=== PATIENT | male | born 1990 | race Caucasian/White ===

== ENCOUNTER 2016-05-22 16:14 | Emergency (ER) | payer MEDICAID, OTHER ==
[~2016-05-22] VITALS: Wt 53.0 kg
[2016-05-22] MEDS ORDERED: LORAZEPAM 1 MG TAB PO ONE (17:00)
--- NOTE | 2016-05-22 18:51 | ERD ---
ER Documentation Chief Complaint Date/Time DATE: 05/22/16 TIME: 18:47 Chief Complaint FEELS ANXIETY AND MILD SOB NO CHEST PAIN OR TRAUMA HPI 25-year-old male with no significant past medical history presents the ED complaining of feeling anxious and nervous. Reports that this has been going on intermittently for the last 3 years. States that he feels stressed. Reports that his body feels like he is jumping out of his skin. States that he feels slight short of breath. Denies any recent traveling. Denies any abdominal pain, nausea, vomiting, diarrhea, wheezing, cough, fever, chills. Denies any homicidal or suicidal ideations. Denies any hallucinations. ROS All systems reviewed and are negative except as per history of present illness. PMhx/Soc History of Surgery: No Anesthesia Reaction: No Hx Neurological Disorder: No Hx Respiratory Disorders: No Hx Cardiac Disorders: No Hx Psychiatric Problems: No Hx Miscellaneous Medical Probl: No Hx Alcohol Use: No Hx Substance Use: No Hx Tobacco Use: No Smoking Status: Never smoker Physical Exam Vitals Vital Signs Date Time Temp Pulse Resp B/P Pulse Ox O2 Delivery O2 Flow Rate FiO2 05/22/16 16:23 98.8 79 20 138/62 98 Physical Exam Const: Vdd-[id number], well-nourished. In no acute distress. Head: Atraumatic, normocephalic Eyes: Normal Conjunctiva without injection. No purulent discharge. PERRLA. EOMI ENT: Normal external ear. Ear canal without erythema. Tympanic membrane pearly lewis without effusion or bulging. Nasal canal clear with normal turbinates. Moist oropharynx without tonsillar exudates. Non-erythematous pharynx. Uvula midline. No drooling. No trismus. Neck: No cervical midline tenderness. Full range of motion. No meningismus. No cervical lymphadenopathy. No JVD. Resp: Clear to auscultation bilaterally. No wheezing, rhonchi, rales, or crackles. No accessory muscle use. No retractions. Cardio: Regular rate and rhythm. No murmurs, rubs or gallops. Skin: Normal skin turgor. No petechiae or rashes Ext: No cyanosis, or edema. Distal pulses intact bilaterally. Neur: Awake and alert. Normal gait. Normal coordination. Cranial Nerves II- VII intact. Normal finger to nose. Muscle strength 5/5. Sensation intact. Psych: Normal Mood and Affect Results 24 hrs Current Medications Medications (Trade) Dose Ordered Sig/Rayo Route PRN Reason Start Time Stop Time Status Last Admin Dose Admin Lorazepam (Ativan) 1 mg ONCE ONCE PO 05/22/16 17:00 05/22/16 17:01 DC 05/22/16 16:55 Procedures/MDM This is a 25-year-old male with no significant past medical history presents the ED complaining of slight shortness of breath and feeling anxious. Patient is afebrile and nontoxic-appearing. An EKG was ordered to further evaluate patient. Patient was given 1.5 mg of Ativan which improved his symptoms. EKG reviewed and interpreted by Dr. Pabon Rate/Rhythm: [64 bpm, normal Sinus Rhythm] No ectopy, no ST elevations, normal axis. QRS, ST, T-waves: [No changes consistent w/ acute ischemia] Impression: [No evidence of ischemia or arrhythmia] Patient symptoms are likely anxiety. Low suspicion for acute myocardial infarction, pneumothorax, pneumonia, cardiac tamponade, pulmonary embolism, AAA , aortic dissection, Boerhaave's syndrome, cardiac dysrhythmias,meningitis, intracranial bleed, seizure, stroke, TIA or other emergent conditions. Follow up with primary care physician in 1-2 days. Instructed patient to return to the ED sooner for any worsening symptoms. Patient's questions were answered. Patient understood and agreed with discharge plan. Patient discharged stable. Departure Diagnosis: Primary Impression: Anxiety Condition: Stable Patient Instructions: Your Body's Response to Anxiety, Anxiety Reaction Referrals: [facility] YOU HAVE RECEIVED A MEDICAL SCREENING EXAM AND THE RESULTS INDICATE THAT YOU DO NOT HAVE A CONDITION THAT REQUIRES URGENT TREATMENT IN THE EMERGENCY DEPARTMENT. FURTHER EVALUATION AND TREATMENT OF YOUR CONDITION CAN WAIT UNTIL YOU ARE SEEN IN YOUR DOCTORS OFFICE WITHIN THE NEXT 1-2 DAYS. IT IS YOUR RESPONSIBILITY TO MAKE AN APPOINTMENT FOR FOLOW-UP CARE. IF YOU HAVE A PRIMARY DOCTOR --you should call your primary doctor and schedule an appointment IF YOU DO NOT HAVE A PRIMARY DOCTOR YOU CAN CALL OUR PHYSICIAN REFERRAL HOTLINE AT IF YOU CAN NOT AFFORD TO SEE A PHYSICIAN YOU CAN CHOSE FROM THE FOLLOWING [facility] [address] [facility]. [facility] [address] [facility]. [address] [facility] [address] [facility] [address] [facility] [address] [facility] [facility] [address] [facility]. [facility] YOU HAVE RECEIVED A MEDICAL SCREENING EXAM AND THE RESULTS INDICATE THAT YOU DO NOT HAVE A CONDITION THAT REQUIRES URGENT TREATMENT IN THE EMERGENCY DEPARTMENT. FURTHER EVALUATION AND TREATMENT OF YOUR CONDITION CAN WAIT UNTIL YOU ARE SEEN IN YOUR DOCTORS OFFICE WITHIN THE NEXT 1-2 DAYS. IT IS YOUR RESPONSIBILITY TO MAKE AN APPOINTMENT FOR FOLOW-UP CARE. IF YOU HAVE A PRIMARY DOCTOR --you should call your primary doctor and schedule and appointment IF YOU DO NOT HAVE A PRIMARY DOCTOR YOU CAN CALL OUR PHYSICIAN REFERRAL HOTLINE AT . IF YOU CAN NOT AFFORD TO SEE A PHYSICIAN YOU CAN CHOSE FROM THE FOLLOWING [facility] INSTITUTIONS: [facility] [address] [place] [address] [facility] [address] [place] [address] [facility] + [facility] [address] [place] [address] [facility] Additional Instructions: FOLLOW UP WITH YOUR PRIMARY CARE PHYSICIAN TOMORROW. Return to this facility if you are not improving as expected. JORDYN HEDRICK PA-C May 22, 2016 18:51
[2016-05-22] MEDS ORDERED: LORAZEPAM 0.5 MG TAB PO ONE (19:00)
== END 2016-05-22 18:57 | disposition home or self-care (01) ==
LOC: FTE 16:14
DX: F41.9 Anxiety disorder, unspecified (principal); R06.02 Shortness of breath
CPT/HCPCS: 93005; Z7610

== ENCOUNTER 2016-11-01 15:27 | Emergency (ER) | payer OTHER ==
[~2016-11-01] VITALS: Ht 167.6 cm; Wt 60.0 kg
[2016-11-01 15:33] VITALS: Ht 167.6 cm; Wt 60.0 kg
[2016-11-01] MEDS ORDERED: HYDROCODONE/APAP (10/325) TAB PO ONE (17:00)
[2016-11-01] MEDS ORDERED: AMOXICILLIN/CLAV 875 MG TAB PO ONE (17:00)
--- NOTE | 2016-11-01 17:45 | ERD ---
ER Documentation Chief Complaint Date/Time DATE: 11/01/16 TIME: 17:32 Chief Complaint pt bib self with lower right tooth pain for a long time HPI This 26-year-old male patient presents to emergency department for pain control. Patient has a broken molar reports incident happened a few days ago states pain in his jaw radiating to his head. Patient states he does not have a dentist appointment yet but plans to go this week. ROS All systems reviewed and are negative except as per history of present illness. Allergies Allergies: Coded Allergies: No Known Allergy (Unverified , 11/01/16) PMhx/Soc Medical and Surgical Hx: pt denies Medical Hx, pt denies Surgical Hx History of Surgery: No Anesthesia Reaction: No Hx Neurological Disorder: No Hx Respiratory Disorders: No Hx Cardiac Disorders: No Hx Psychiatric Problems: No Hx Miscellaneous Medical Probl: No Hx Alcohol Use: No Hx Substance Use: No Hx Tobacco Use: No Smoking Status: Never smoker Physical Exam Vitals Vital Signs Date Time Temp Pulse Resp B/P Pulse Ox O2 Delivery O2 Flow Rate FiO2 11/01/16 15:33 99.0 60 16 119/57 99 Vitals stable, triage notes reviewed Physical Exam Const: Well-nourished well-appearing well-hydrated obvious discomfort no acute distress Head: Atraumatic Eyes: Normal Conjunctiva, PERRLA, EOMI ENT Tympanic membranes translucent, nasal mucosa moist, Ellis1 fracture second molar on mandible right side #18 gingiva without edema no halitosis,No TMJ tenderness.. Neck: Full range of motion. Resp: Respirations even and unlabored no respiratory distress Cardio: Abd: Skin: Back: Ext: Neur: Awake and alert Psych: Normal Mood and Affect Results 24 hrs Current Medications Medications (Trade) Dose Ordered Sig/Rayo Route PRN Reason Start Time Stop Time Status Last Admin Dose Admin Amoxicillin/ Clavulanate Potassium (Augmentin) 875 mg ONCE ONCE PO 11/01/16 17:00 11/01/16 17:01 DC 11/01/16 17:24 Acetaminophen/ Hydrocodone Bitart ([place] (10/325)) 1 tab ONCE ONCE PO 11/01/16 17:00 11/01/16 17:01 DC 11/01/16 17:24 Procedures/MDM This 26-year-old male patient presents to emergency department for dental pain, patient reports fracturing his second molar on right mandible. Patient does not have a dentist at this time reports that he is going to try to go this week. Physical exam findings support a lozada 1 fracture, involving enamel tooth is stable nontender. Tooth is broken. No gingival swelling or erythema. Molar infection is suspected. No obvious gingivitis. Patient treated with first dose of Augmentin 875 and Kellogg 10 while in emergency department plan to discharge home with Kellogg 5 mg, Augmentin 875 1 tab p.o. twice daily 7 days. Instructed to follow-up with dentist this week. Patient is stable with no new complaints during ER course, clinically there is no current evidence to suggest osteomyelitis, necrotizing ulcerative gingivitis, Sialolithiasis or any other emergent condition appearing to require further evaluation or hospitalization. I feel the patient is stable for discharge at this time. I have discussed results, examination findings, the treatment plan with the patient and family present prior to discharge. Indications for emergent reevaluation, side effects of medication were also discussed. All questions were answered. Patient verbalizes understanding and agrees with plan of care. Departure Diagnosis: Primary Impression: Tooth disease Condition: Good Patient Instructions: Dental Pain, Dental Trauma Referrals: [facility] DENTIST Additional Instructions: Thank you for for coming to [facility] for your care today. Please ask your nurse or provider if you have questions about your care today and do not leave until all your questions have been answered. Please use any medications given as directed and follow-up with your doctor (or the doctor you were referred to) in the next 2-3 days. If you do not have a primary care doctor you may follow up at the [facility] (listed below). You may also use motrin and tylenol as needed for fever and/or pain unless instructed otherwise by your provider or nurse. Indications for more urgent follow-up have been discussed, but you may return to the Emergency Department at ANY time for any worrisome or worsening symptoms. If you have abdominal pain, please know that no test or exam you received is perfect and you should follow up within 8 hours for continued pain. If you had any imaging studies today, such as an X-Ray or CT Scan, these studies will be reviewed later by a radiologist. You will be called if there are important findings that were not identified today, so make sure the contact information you provided at registration is correct. If you received any narcotic pain control medicine today, such as Vicodin, Morphine or Dilaudid, your coordination and judgment may be affected for a number of hours. Please do not drive or operate heavy machinery, and you may want someone to assist you at home. If you were given a prescription for narcotic medication, be aware that it is very addictive- use sparingly and only if necessary. RANJANA MELVIN Nov 01, 2016 17:44
[2016-11-01] MEDS ORDERED: AMOX1TAB10 PO (17:46)
[2016-11-01] MEDS ORDERED: IBUP-1542 PO (17:46)
[2016-11-01] MEDS ORDERED: HYDR-906 PO (17:46)
== END 2016-11-01 17:54 | disposition home or self-care (01) ==
LOC: FTE 15:27
DX: K08.9 Disorder of teeth and supporting structures, unspecified (principal)
CPT/HCPCS: Z7502; Z7610; 99284

== ENCOUNTER 2017-01-18 09:59 | Emergency (ER) | payer OTHER ==
[~2017-01-18] VITALS: Ht 157.5 cm; Wt 57.3 kg
[~2017-01-18 09:59] MED LIST: AMOX1TAB10 PO; HYDR-906 PO; IBUP-1542 PO
[2017-01-18 10:05] VITALS: Ht 157.5 cm; Wt 57.3 kg
[2017-01-18] MEDS ORDERED: AMOX500C2 PO (10:37)
[2017-01-18] MEDS ORDERED: NAPR-260 PO (10:37)
--- NOTE | 2017-01-18 10:49 | ERD ---
ER Documentation Chief Complaint Chief Complaint toothache xseveral weeks worse today, waiting for dentist appt HPI This patient is a 26-year-old male with past medical history of dental disease presenting to the emergency department for right lower molar pain ongoing intermittently for 1 week, worsening today. Patient has history of similar symptoms in the past improved with antibiotics and pain medication. The patient states he has been attempting to have follow-up with the dentist, however he has been unable to. He denies fevers, chills, or other symptoms at this time. ROS All systems reviewed and are negative except as per history of present illness. Medications Home Meds Active Scripts Naproxen* (Naprosyn*) 500 Mg Tablet, 500 MG PO BID Y for PAIN AND/OR INFLAMMATION, #30 TAB Prov:PEPE CROUCH PA-C 01/18/17 Amoxicillin* (Amoxicillin*) 500 Mg Cap, 500 MG PO TID for 10 Days, #30 CAP Prov:PEPE CROUCH PA-C 01/18/17 Hydrocodone/Acetaminophen ([place] 5-325 Tablet) 1 Each Tablet, 1 TAB PO Q6H Y for PAIN, #7 TAB Prov:NGOZI,RANJANA 11/01/16 Ibuprofen* (Motrin*) 600 Mg Tab, 600 MG PO Q6, #30 TAB Prov:NGOZI,RANJANA 11/01/16 Amoxicillin/Potassium Clav (Amox-Clav 875-125 mg Tablet) 875-125 mg Tab, 1 TAB PO BID for 7 Days, #14 TAB Prov:NGOZI,RANJANA 11/01/16 Allergies Allergies: Coded Allergies: No Known Allergy (Unverified , 11/01/16) PMhx/Soc History of Surgery: No Anesthesia Reaction: No Hx Neurological Disorder: No Hx Respiratory Disorders: No Hx Cardiac Disorders: No Hx Psychiatric Problems: No Hx Miscellaneous Medical Probl: No Hx Alcohol Use: No Hx Substance Use: No Hx Tobacco Use: No Physical Exam Vitals Vital Signs Date Time Temp Pulse Resp B/P Pulse Ox O2 Delivery O2 Flow Rate FiO2 01/18/17 10:05 97.8 67 18 118/72 98 Physical Exam Const: Nontoxic, well-appearing male in no acute distress. Head: Atraumatic Eyes: Normal Conjunctiva ENT: Normal External Ears, Nose and Mouth. Mouth: Surrounding gum edema noted to the right lower molar area with a broken tooth noted. Poor dentition. Skin: No petechiae or rashes Neur: Awake and alert Psych: Normal Mood and Affect Results 24 hrs Current Medications Medications (Trade) Dose Ordered Sig/Rayo Route PRN Reason Start Time Stop Time Status Last Admin Dose Admin Ibuprofen (Motrin) 600 mg ONCE ONCE PO 01/18/17 11:00 01/18/17 11:01 Procedures/MDM 26-year-old male presenting to the emergency department with complaints of right lower molar pain. History and physical examination consistent with tooth disease. Probable early dental abscess. Patient stable and appropriate for outpatient management with a prescription for amoxicillin and naproxen. He was given ibuprofen in the department for pain control. Low suspicion for deep tissue infection or osteomyelitis of the jaw. No evidence of life-threatening pathology at time of discharge. Pt/family in agreement with discharge plan/ diagnosis. Pt/family advised to return immediately with any new or worsening symptoms. Follow-up with primary care physician within the next 1-2 days. Patient to follow-up with his dentist within the next 1-2 days. Information provided for [facility] dentist. Departure Diagnosis: Primary Impression: Tooth disease Condition: Fair Patient Instructions: Dental Pain, Tooth Abscess Referrals: ANN ALY (PCP) [facility] ([facility] walk in clinic) Additional Instructions: Call your primary care doctor TOMORROW for an appointment during the next 1-2 days.See the doctor sooner or return here if your condition worsens before your appointment time. Call your primary care doctor TOMORROW for an appointment during the next 1 WEEK.Tell the medical records secretary that you were referred from this facility. See the doctor sooner or return here if your condition worsens before your appointment time. PEPE CROUCH PA-C Jan 18, 2017 10:49
[2017-01-18] MEDS ORDERED: IBUPROFEN 600 MG TAB PO ONE (11:00)
== END 2017-01-18 10:56 | disposition home or self-care (01) ==
LOC: FTE 09:59
DX: K08.89 Other specified disorders of teeth and supporting structures (principal)
CPT/HCPCS: Z7502; Z7610; 99283

== ENCOUNTER 2017-02-07 10:53 | Emergency (ER) | payer SELFPAY ==
[~2017-02-07] VITALS: Ht 160 cm; Wt 58.0 kg
[~2017-02-07 10:53] MED LIST changes: +AMOX500C2 PO; +NAPR-260 PO
[2017-02-07 10:55] VITALS: Ht 160 cm; Wt 58.0 kg
== END 2017-02-07 11:25 | disposition left against medical advice (07) ==
LOC: FTE 10:53
DX: Z53.21 Procedure and treatment not carried out due to patient leaving prior to being seen by health care provider (principal)